=== PATIENT | male | born 1985 | race Caucasian/White ===

== ENCOUNTER 2018-04-12 21:13 | Emergency (ER) | payer OTHER ==
[2018-04-12 21:55] VITALS: BP 105/70; PULSE 68; TEMP 98.2; BMI 28.4
[2018-04-12] MEDS ORDERED: RANITIDINE HCL 150 MG TABLET (FP) PO ONE (22:35)
[2018-04-12] MEDS ORDERED: KETOROLAC TROMETHAMINE 60 MG/2 ML VIAL IM ONE (22:35)
[2018-04-12] MEDS ORDERED: RANITIDINE HCL 150 MG TABLET (FP) ONE (22:36)
[2018-04-12] MEDS ORDERED: KETOROLAC TROMETHAMINE 60 MG/2 ML VIAL ONE (22:36)
--- NOTE | 2018-04-12 22:40 | PDOC ---
History of Present Illness - General Chief Complaint: Back Pain Stated Complaint: LOWER BACK PAIN Time Seen by Provider: 04/12/18 22:06 History Source: Patient - History of Present Illness Initial Comments: 33-year-old healthy male free of any significant medical comorbidities presents for evaluation of lower back pain with left leg radiculopathy 1 month. He hasn' t taken anything for the pain he describes his pain as achy exacerbated with motion relieved with rest with left posterior lateral leg radiculopathy. He denies any loss of bowel or bladder function. No other associated symptoms. His pain started when he lifted something wrong while at work. 04/12/18 22:36 Past History - Past Medical History Allergies/Adverse Reactions: Allergies Allergy/AdvReac Type Severity Reaction Status Date / Time No Known Allergies Allergy Verified 04/12/18 21:50 Home Medications: Ambulatory Orders Cyclobenzaprine HCl [Flexeril 10 mg] 10 mg PO HS PRN #10 tablet 04/12/18 Methylprednisolone [Medrol Dose Vinay] 4 mg PO ASDIR #21 tablet 04/12/18 COPD: No - Suicide/Smoking/Psychosocial Hx Smoking History: Current every day smoker Have you smoked in the past 12 months: Yes Number of Cigarettes Smoked Daily: 0 Information on smoking cessation initiated: No Hx Alcohol Use: No Drug/Substance Use Hx: No Substance Use Type: Marijuana Review of Systems - Review of Systems Musculoskeletal: Yes: Back Pain All Other Systems: Reviewed and Negative *Physical Exam - Vital Signs Last Vital Signs Temp Pulse Resp BP Pulse Ox 98.2 F 68 20 105/70 96 04/12/18 21:50 04/12/18 21:50 04/12/18 21:50 04/12/18 21:50 04/12/18 21:50 - Physical Exam Comments: Lumbar spine skin color and temperature are normal. There is full nonpainful range of motion. 5 out of 5 strength in bilateral lower extremities. Patella and Achilles reflexes are 2+ and symmetric bilaterally. There is no clonus. Straight leg raise test is negative on the left positive on the right. Thighs and calves are soft and nontender. There are no gross sensory motor deficits. Neurovascularly intact. 04/12/18 22:37 Medical Decision Making - Medical Decision Making 33-year-old male with lumbar radiculopathy with the contralateral positive straight leg raise test. I will prescribe him a Medrol Dosepak as well as Flexeril for nighttime use and follow-up with spine surgery. While in the ER I will give him Toradol as well as GI prophylaxis with Zantac. 04/12/18 22:37 *DC/Admit/Observation/Transfer Diagnosis at time of Disposition: Lumbar radicular pain - Discharge Dispostion Disposition: HOME Condition at time of disposition: Stable Decision to Admit order: No - Prescriptions Prescriptions: Cyclobenzaprine HCl [Flexeril 10 mg] 10 mg PO HS PRN #10 tablet PRN Reason: Muscle Spasms Methylprednisolone [Medrol Dose Vinay] 4 mg PO ASDIR #21 tablet - Referrals Referrals: Usha Monte [Primary Care Provider] - Greg Elena MD [Staff Physician] - - Patient Instructions Printed Discharge Instructions: Lumbar Radiculopathy, DI for Lumbar Radiculopathy Additional Instructions: Point few to follow-up with spine surgery as advised. I've given you a steroid pack as well as a muscle relaxer which will help with her pain. It's important to start the steroid pack tomorrow morning. Do not take any other anti- inflammatories such as Advil Motrin and Aleve or ibuprofen while on the steroid pack the steroid pack as the only medicine he should take as long as you can tolerated. It's a 5 day course I've also prescribed you a muscle relaxer for nighttime use. Return to the emergency room if your symptoms worsen or go unresolved. - Post Discharge Activity
== END 2018-04-12 22:54 | disposition home or self-care (01) ==
LOC: JERFT 21:13 → JER 21:13 → JERFT 22:54
PROC: 3E0233Z Introduction of Anti-inflammatory into Muscle, Percutaneous Approach (ICD-10-PCS; principal; 2018-04-12)
DX: M54.16 Radiculopathy, lumbar region (principal); F17.210 Nicotine dependence, cigarettes, uncomplicated
CPT/HCPCS: 99281-25

== ENCOUNTER 2018-12-06 11:24 | Emergency (ER) | payer OTHER ==
[2018-12-06 11:50] VITALS: BP 126/75; PULSE 68; TEMP 98.5; BMI 28.5
--- NOTE | 2018-12-06 12:18 | PDOC ---
History of Present Illness - General Chief Complaint: Cold Symptoms Stated Complaint: NAUSEA/VOMITING Time Seen by Provider: 12/06/18 11:56 - History of Present Illness Initial Comments: 12/06/18 12:16 33-year-old male without comorbidities presents for evaluation of 14 days of nasal congestion and sinus congestion no systemic symptoms one episode of vomiting today Past History - Past Medical History Allergies/Adverse Reactions: Allergies Allergy/AdvReac Type Severity Reaction Status Date / Time No Known Allergies Allergy Verified 12/06/18 12:02 Home Medications: Ambulatory Orders Amox-Tr/K Cl [Augmentin - 875Mg Tablet] 1 tab PO BID #20 tablet 12/06/18 Budesonide [Rhinocort Allergy] 1 spray NS ONCE #1 spray.pump 12/06/18 COPD: No HTN: No - Surgical History Cardiac Surgery: No - Immunization History Immunization Up to Date: No - Suicide/Smoking/Psychosocial Hx Smoking History: Former smoker Have you smoked in the past 12 months: No Number of Cigarettes Smoked Daily: 0 Information on smoking cessation initiated: No Hx Alcohol Use: No Drug/Substance Use Hx: No Substance Use Type: Marijuana Review of Systems - Review of Systems Constitutional: No: Fever HEENTM: Yes: Nose Congestion ABD/GI: Yes: Vomiting *Physical Exam - Vital Signs Last Vital Signs Temp Pulse Resp BP Pulse Ox 98.5 F 68 18 126/75 100 12/06/18 11:47 12/06/18 11:47 12/06/18 11:47 12/06/18 11:47 12/06/18 11:47 - Physical Exam Comments: 12/06/18 12:17 HEAD: NC/AT EYES: Conjuntiva clear Ears: Canals and TM's normal NOSE: Clear discharge, injected turbinates THROAT: Moist mucous membrances, oral pharanx clear, uvula midline NECK: Supple without adenopathy CARDIAC: S1 S2 LUNGS: CTA Full and Equal breath sounds ABDOMEN: Soft NT ND MS: Full ROM in all joints without edema NEUROLOGIC: No gross sensory or motor deficits, NVID SKIN: Normal color and temperature no lesions or rashes Moderate Sedation - Procedure Monitoring Vital Signs: Procedure Monitoring Vital Signs Temperature 98.5 F 12/06/18 11:47 Pulse Rate 68 12/06/18 11:47 Respiratory Rate 18 12/06/18 11:47 Blood Pressure 126/75 12/06/18 11:47 O2 Sat by Pulse Oximetry (%) 100 12/06/18 11:47 *DC/Admit/Observation/Transfer Diagnosis at time of Disposition: Sinusitis - Discharge Dispostion Disposition: HOME Condition at time of disposition: Stable Decision to Admit order: No - Prescriptions Prescriptions: Amox-Tr/K Cl [Augmentin - 875Mg Tablet] 1 tab PO BID #20 tablet Budesonide [Rhinocort Allergy] 1 spray NS ONCE #1 spray.pump - Referrals Referrals: Jan Ring MD [Staff Physician] - - Patient Instructions Printed Discharge Instructions: Sinusitis, DI for Sinusitis Additional Instructions: Please take the antibiotics and use nasal spray as directed. Return to the emergency room should symptoms worsen or go unresolved. Follow-up with ear nose and throat doctor in 1-2 days for further evaluation and treatment options. - Post Discharge Activity
== END 2018-12-06 12:37 | disposition home or self-care (01) ==
LOC: JERFT 11:24
DX: J32.9 Chronic sinusitis, unspecified (principal); Z87.891 Personal history of nicotine dependence
CPT/HCPCS: 99281-25

== ENCOUNTER 2019-06-17 17:12 | Emergency (ER) | payer OTHER ==
[2019-06-17 17:19] VITALS: BP 122/62; PULSE 80; TEMP 98.2; BMI 26.7
[2019-06-17] MEDS ORDERED: ERYTHROMYCIN 0.5% OPHTHALMIC OINTMENT 3.5 GM TUBE OS ONE (17:56)
--- NOTE | 2019-06-17 17:58 | PDOC ---
History of Present Illness - General Chief Complaint: Eye Problem Stated Complaint: POSSIBLE CONJUNTIVITIS Time Seen by Provider: 06/17/19 17:21 History Source: Patient Exam Limitations: No Limitations Past History - Travel Traveled outside of the country in the last 30 days: No Close contact w/someone who was outside of country & ill: No - Past Medical History Allergies/Adverse Reactions: Allergies Allergy/AdvReac Type Severity Reaction Status Date / Time No Known Allergies Allergy Verified 06/17/19 17:16 Home Medications: Ambulatory Orders Amox-Tr/K Cl [Augmentin - 875Mg Tablet] 1 tab PO BID #20 tablet 12/06/18 Budesonide [Rhinocort Allergy] 1 spray NS ONCE #1 spray.pump 12/06/18 Erythromycin 0.5% Eye Ointment [Erythromycin 0.5% Eye Ointment -] 1 applic OS TID #1 tube 06/17/19 COPD: No HTN: No - Surgical History Cardiac Surgery: No - Immunization History Immunization Up to Date: No - Suicide/Smoking/Psychosocial Hx Smoking History: Never smoked Have you smoked in the past 12 months: No Number of Cigarettes Smoked Daily: 0 Hx Alcohol Use: No Drug/Substance Use Hx: No Substance Use Type: Marijuana Review of Systems - Review of Systems Able to Perform ROS?: Yes Comments:: 06/17/19 19:04 CONSTITUTIONAL: Absent: fever, chills, diaphoresis, generalized weakness, malaise, loss of appetite HEENT: Present: Eye redness and drainage Absent: rhinorrhea, nasal congestion, throat pain, throat swelling, difficulty swallowing, mouth swelling, ear pain, eye pain , visual Changes SKIN: Absent: rash, itching, pallor NEUROLOGIC: Absent: headache, focal weakness or paresthesias, dizziness, unsteady gait, seizure, mental status changes, bladder or bowel incontinence PSYCHIATRIC: Absent: anxiety, depression, suicidal or homicidal ideation, hallucinations. Is the patient limited Upper Sorbian proficient: No *Physical Exam - Vital Signs Last Vital Signs Temp Pulse Resp BP Pulse Ox 98.2 F 80 18 122/62 98 06/17/19 17:13 06/17/19 17:13 06/17/19 17:13 06/17/19 17:13 06/17/19 17:13 - Physical Exam Comments: 06/17/19 19:07 GENERAL: The patient is awake, alert, and fully oriented, in no acute distress. HEAD: Normal with no signs of trauma. EYES: Pupils equal, round and reactive to light, extraocular movements intact, sclera anicteric, conjunctiva injected to the L eye. EXTREMITIES: Normal range of motion, no edema. NEUROLOGICAL: Normal speech, normal gait. PSYCH: Normal mood, normal affect. SKIN: Warm, Dry, normal turgor, no rashes or lesions noted. Medical Decision Making - Medical Decision Making 06/17/19 19:09 The patient is a 34-year-old male with no past medical history who presents to the ER with 2 days of eye redness, discharge and itching. He used Visine drops yesterday without relief of symptoms. Denies fevers, chills, visual changes, double vision and floaters. A/P: Conjunctivitis On exam the left conjunctiva is injected, drainage noted at the medial canthus We will prescribe erythromycin ointment Discharge home I discussed the physical exam findings, ancillary test results and final diagnoses with the patient. I answered all of the patient's questions. The patient was satisfied with the care received and felt comfortable with the discharge plan and treatment plan. The Patient agrees to follow up with the primary care physician/specialist within 24-72 hours. Return precautions were given. *DC/Admit/Observation/Transfer Diagnosis at time of Disposition: Conjunctivitis Qualifiers: Conjunctivitis type: acute Acute conjunctivitis type: unspecified Laterality: left Qualified Code(s): H10.32 - Unspecified acute conjunctivitis, left eye - Discharge Dispostion Disposition: HOME Condition at time of disposition: Stable Decision to Admit order: No - Prescriptions Prescriptions: Erythromycin 0.5% Eye Ointment [Erythromycin 0.5% Eye Ointment -] 1 applic OS TID #1 tube - Referrals Referrals: Lakisha Osborne MD [Staff Physician] - - Patient Instructions Printed Discharge Instructions: DI for Conjunctivitis Additional Instructions: You have conjunctivitis. This is an eye infection. Please use erythromycin ointment twice a day to the affected eye for one week. Please wash her hands frequently Do not wear contact lenses until your infection clears Follow up with ophthalmology if her symptoms do not improve within a week. Return to the ER for visual changes, blurry vision, or any new or worsening symptoms. - Post Discharge Activity
[2019-06-17] MEDS ORDERED: ERYTHROMYCIN 0.5% OPHTHALMIC OINTMENT 3.5 GM TUBE ONE (18:01)
== END 2019-06-17 18:00 | disposition home or self-care (01) ==
LOC: JERFT 17:12
DX: H10.32 Unspecified acute conjunctivitis, left eye (principal)
CPT/HCPCS: 99281-25

== ENCOUNTER 2019-08-22 08:03 | Emergency (ER) | payer OTHER ==
[2019-08-22 08:08] VITALS: BP 128/73; PULSE 65; TEMP 98.7; BMI 26.4
[2019-08-22] MEDS ORDERED: SODIUM CHLORIDE 1,000 ML IV STA (08:49)
[2019-08-22] MEDS ORDERED: ONDANSETRON 4 MG/2 ML VIAL IVPUSH ONE (08:49)
[2019-08-22] MEDS ORDERED: ACETAMINOPHEN 1000 MG/100 ML VIAL (NON FORMULARY) IVPB ONE (08:49)
[2019-08-22] MEDS ORDERED: FAMOTIDINE 20 MG/50 ML IVPB 20 MG/50 ML MG IVPB ONE ×2 (08:50→08:57)
--- NOTE | 2019-08-22 08:54 | PDOC ---
History of Present Illness <Mary Jeffers - Last Filed: 08/22/19 10:14> - General History Source: Patient Exam Limitations: No Limitations <Gladis Haas - Last Filed: 08/22/19 11:16> - General Chief Complaint: Pain, Acute Stated Complaint: ABD PAIN Time Seen by Provider: 08/22/19 08:29 Past History <Mary Jeffers - Last Filed: 08/22/19 10:14> - Travel Traveled outside of the country in the last 30 days: No Close contact w/someone who was outside of country & ill: No - Past Medical History COPD: No HTN: No - Surgical History Cardiac Surgery: No - Immunization History Immunization Up to Date: No - Psycho Social/Smoking Cessation Hx Smoking History: Never smoked Have you smoked in the past 12 months: No Number of Cigarettes Smoked Daily: 0 Hx Alcohol Use: No Drug/Substance Use Hx: No Substance Use Type: Marijuana <Gladis Haas - Last Filed: 08/22/19 11:16> - Past Medical History Allergies/Adverse Reactions: Allergies Allergy/AdvReac Type Severity Reaction Status Date / Time No Known Allergies Allergy Verified 08/22/19 08:08 Home Medications: Ambulatory Orders Amox-Tr/K Cl [Augmentin - 875Mg Tablet] 1 tab PO BID #20 tablet 12/06/18 Budesonide [Rhinocort Allergy] 1 spray NS ONCE #1 spray.pump 12/06/18 Erythromycin 0.5% Eye Ointment [Erythromycin 0.5% Eye Ointment -] 1 applic OS TID #1 tube 06/17/19 Review of Systems - Review of Systems Able to Perform ROS?: Yes Comments:: 08/22/19 08:50 CONSTITUTIONAL: Absent: fever, chills, diaphoresis, generalized weakness, malaise, loss of appetite HEENT: Absent: rhinorrhea, nasal congestion, throat pain, throat swelling, difficulty swallowing, mouth swelling, ear pain, eye pain, visual Changes CARDIOVASCULAR: Absent: chest pain, loss of consciousness, palpitations, irregular heart rate, peripheral edema RESPIRATORY: Absent: cough, shortness of breath, dyspnea with exertion, orthopnea, wheezing, stridor, hemoptysis GASTROINTESTINAL: Present: abdominal pain, nausea Absent: abdominal distension, vomiting, diarrhea, constipation, melena, hematochezia GENITOURINARY: Absent: dysuria, frequency, urgency, hesitancy, hematuria, flank pain, genital pain MUSCULOSKELETAL: Absent: myalgia, arthralgia, joint swelling SKIN: Absent: rash, itching, pallor HEMATOLOGIC/IMMUNOLOGIC: Absent: easy bleeding, easy bruising, lymphadenopathy, frequent infections ENDOCRINE: Absent: unexplained weight gain, unexplained weight loss, heat intolerance, cold intolerance NEUROLOGIC: Absent: headache, focal weakness or paresthesias, dizziness, unsteady gait, seizure, mental status changes, bladder or bowel incontinence PSYCHIATRIC: Absent: anxiety, depression, suicidal or homicidal ideation, hallucinations. Is the patient limited Ethiopian proficient: No <NoramaiaGladis long - Last Filed: 08/22/19 11:16> *Physical Exam - Vital Signs Last Vital Signs Temp Pulse Resp BP Pulse Ox 98.7 F 65 16 128/73 99 08/22/19 08:05 08/22/19 08:05 08/22/19 08:05 08/22/19 08:05 08/22/19 08:05 <Mary Jeffers - Last Filed: 08/22/19 10:14> - Vital Signs Last Vital Signs Temp Pulse Resp BP Pulse Ox 98.7 F 65 16 128/73 99 08/22/19 08:05 08/22/19 08:05 08/22/19 08:05 08/22/19 08:05 08/22/19 08:05 - Physical Exam Comments: 08/22/19 08:54 GENERAL: Well developed, well nourished. Awake and alert. No acute distress. HEENT: Normocephalic, atraumatic. PERRLA, EOMI. No conjunctival pallor. Sclera are non- icteric. Moist mucous membranes. Oropharynx is clear. NECK: Supple. Full ROM. No JVD. Carotid pulses 2+ and symmetric, without bruits. No thyromegaly. No lymphadenopathy. CARDIOVASCULAR: Regular rate and rhythm. No murmurs, rubs, or gallops. Distal pulses are 2+ and symmetric. PULMONARY: No evidence of respiratory distress. Lungs clear to auscultation bilaterally. No wheezing, rales or rhonchi. ABDOMINAL: TTP of the RUQ with light and deep palpation. Positive Liao sign. Positive guarding of the right upper quadrant. Soft. Non-distended. No organomegaly. Normoactive bowel sounds. MUSCULOSKELETAL Normal range of motion at all joints. No bony deformities or tenderness. No CVA tenderness. EXTREMITIES: No cyanosis. No clubbing. No edema. No calf tenderness. SKIN: Warm and dry. Normal capillary refill. No rashes. No jaundice. NEUROLOGICAL: Alert, awake, appropriate. Cranial nerves 2-12 intact. No deficits to light touch and temperature in face, upper extremities and lower extremities. No motor deficits in the in face, upper extremities and lower extremities. Normoreflexic in the upper and lower extremities. Normal speech. Toes are down- going bilaterally. Gait is normal without ataxia. PSYCHIATRIC: Cooperative. Good eye contact. Appropriate mood and affect. <Gladis Haas - Last Filed: 08/22/19 11:16> ED Treatment Course - LABORATORY CBC & Chemistry Diagram: 08/22/19 09:02 08/22/19 09:02 - ADDITIONAL ORDERS Additional order review: Laboratory Results 08/22/19 08/22/19 09:02 09:02 PT with INR 11.80 INR 1.00 Sodium 139 Potassium 4.5 Chloride 104 Carbon Dioxide 29 Anion Gap 6 L BUN 16.5 Creatinine 1.0 Est GFR (CKD-EPI)AfAm 114.91 Est GFR (CKD-EPI)NonAf 99.15 Random Glucose 95 Calcium 8.6 Total Bilirubin 0.4 AST 19 ALT 25 Alkaline Phosphatase 66 Total Protein 7.0 Albumin 3.9 Lipase 154 08/22/19 09:02 RBC 4.94 MCV 88.1 MCHC 33.7 RDW 14.1 MPV 9.0 Neutrophils % 68.8 Lymphocytes % 21.3 Monocytes % 8.5 Eosinophils % 0.7 Basophils % 0.7 - Medications Given in the ED: ED Medications Discontinued Medications Generic Name Dose Route Start Last Admin Trade Name Freq PRN Reason Stop Dose Admin Acetaminophen 1,000 mg 08/22/19 08:49 08/22/19 09:05 Ofirmev Injection - IVPB 08/22/19 08:50 1,000 mg ONCE ONE Administration Famotidine/Sodium Chloride 20 mg in 50 mls @ 100 mls/hr 08/22/19 08:50 09:05 Pepcid 20 Mg Premixed Ivpb - IVPB 08/22/19 09:19 100 mls/hr ONCE ONE Administration Sodium Chloride 1,000 mls @ 1,000 mls/hr 08/22/19 08:49 08/22/19 09:05 Normal Saline - IV 08/22/19 09:48 1,000 mls/hr ASDIR STA Administration Ondansetron HCl 4 mg 08/22/19 08:49 08/22/19 09:05 Zofran Injection IVPUSH 08/22/19 08:50 4 mg ONCE ONE Administration <Mary Jeffers - Last Filed: 08/22/19 10:14> - LABORATORY CBC & Chemistry Diagram: 08/22/19 09:02 08/22/19 09:02 <Gladis Haas - Last Filed: 08/22/19 11:16> Medical Decision Making - Medical Decision Making 08/22/19 10:14 The patient was seen and evaluated in conjunction with midlevel provider under my direct supervision, ancillary studies were reviewed. I agree with the plan as outlined PA Samina HPI, workup/dispo as outlined. in summary 34 YOM with RUQ/epigastric pain, admits to eating fatty/spicy foods several days ago. VS reviewed, wnl. labs unremarkable. pain controlled after GI cocktail/fluids/analgesia bedside sono neg for stones/cholecystitis, CBD <3mm. official sono confirms anticipate discharge, supportive care, avoid triggers, pcp followup, GI followup return precautions <Mary Jeffers - Last Filed: 08/22/19 10:14> - Medical Decision Making 08/22/19 08:54 The patient is a 34-year-old male no past medical history, no surgical history, presents to the ER today for upper abdominal pain starting on Tuesday, 2018. He states that the pain gets worse after eating fatty or spicy foods. He states that the pain is mostly in the right upper quadrant. He notes that he has had associated nausea without vomiting. He has not taken any medication for his pain. Denies fevers, chills, chest pain, difficulty breathing, shortness of breath, diarrhea, constipation and urinary symptoms. A/P: Right upper quadrant pain On exam patient very tender to the right upper quadrant with a positive Liao sign. Differential diagnosis includes but is not limited to: Cholecystitis, pancreatitis, choledocholithiasis, gastritis, bile duct obstruction, pneumonia, less likely ascending cholangitis due to lack of fever. Labs, right upper quadrant ultrasound ordered IV fluids, pain medication, Zofran ordered Reevaluate 08/22/19 09:09 EK BPM Sinus Anshul. Normal intervals and axis. No acute ST-T wave changes 08/22/19 09:44 POCUS performed by myself and Dr. Jeffers. Gallbladder without stones, sludge or pericholecystic fluid. Common bile duct 1.8 mm. Overall normal gallbladder. 08/22/19 10:28 Official sono confirms bedside ultrasound Lab work is negative at this time. Anticipate discharge with GI follow-up. Supportive measures given I discussed the physical exam findings, ancillary test results and final diagnoses with the patient. I answered all of the patient's questions. The patient was satisfied with the care received and felt comfortable with the discharge plan and treatment plan. The Patient agrees to follow up with the primary care physician/specialist within 24-72 hours. Return precautions were given. <Gladis Haas - Last Filed: 08/22/19 11:16> Discharge <Mary Jeffers - Last Filed: 08/22/19 10:14> - Discharge Information Problems reviewed: Yes - Admission No <Gladis Haas - Last Filed: 08/22/19 11:16> - Discharge Information Clinical Impression/Diagnosis: Gastritis Qualifiers: Gastritis type: unspecified gastritis Chronicity: acute Gastritis bleeding: without bleeding Qualified Code(s): K29.00 - Acute gastritis without bleeding Condition: Stable - Follow up/Referral Referrals: Usha Monte [Primary Care Provider] - Tod Rivera DO [Staff Physician] - - Patient Discharge Instructions Patient Printed Discharge Instructions: DI for Gastritis Additional Instructions: You were evaluated for your abdominal pain today. Your ultrasound was normal. Your gallbladder did not show any evidence of gallstones. You most likely have gastritis. Please take the Pepcid and Zofran as directed. Avoid fatty and spicy foods Please follow-up with GI this week. Referrals been given to. Return to the ER for worsening abdominal pain, vomiting, vomiting blood, or if you have any changes in your symptoms. - Post Discharge Activity Work/Back to School Note: Back to Work
[2019-08-22] MEDS ORDERED: ACETAMINOPHEN INJECTION 100 ML IVPB ONE (08:57)
[2019-08-22] MEDS ORDERED: ONDANSETRON 4 MG/2 ML VIAL ONE (08:57)
[2019-08-22 09:20] LABS: BASO % 0.7 % (0-2.0); EOS % 0.7 % (0-4.5); HEMATOCRIT 43.6 % (35.4-49); HEMOGLOBIN 14.7 GM/dL (11.7-16.9); LYMPH % 21.3 % (8-40); MCH 29.7 pg (25.7-33.7); MCHC 33.7 g/dl (32.0-35.9); MEAN CELL VOLUME 88.1 fl (80-96); MONO % 8.5 % (3.8-10.2); NEUT % 68.8 % (42.8-82.8); PLATELET COUNT 206 K/MM3 (134-434); RBC 4.94 M/mm3 (4.00-5.60); RDW 14.1 % (11.9-15.9); WHITE BLOOD COUNT 7.8 K/mm3 (4.0-10.0)
[2019-08-22 09:33] LABS: PROTHROMBIN TIME (PATIENT) 11.8 SEC (9.7-13.0)
[2019-08-22 09:51] LABS: ALBUMIN 3.9 g/dl (3.4-5.0); BILIRUBIN,TOTAL 0.4 mg/dL (0.2-1); BLOOD UREA NITROGEN 16.5 mg/dL (7-18); CALCIUM 8.6 mg/dL (8.5-10.1); POTASSIUM 4.5 mmol/L (3.5-5.1)
[2019-08-22 11:02] LABS: PH,URINE 6.5 (5.0-8.0); URINE APPEARANCE CLEAR; URINE BILIRUBIN NEGATIVE (NEGATIVE); URINE COLOR YELLOW; URINE GLUCOSE (UA) NEGATIVE (NEGATIVE); URINE KETONE NEGATIVE (NEGATIVE); URINE LEUK ESTERASE NEGATIVE (NEGATIVE); URINE NITRITE NEGATIVE (NEGATIVE); URINE PROTEIN NEGATIVE (NEGATIVE); URINE UROBILINOGEN 0.2 mg/dL (0.2-1.0)
--- NOTE | 2019-08-22 12:56 | EKG ---
Test Reason : Blood Pressure : / mmHG Vent. Rate : 056 BPM Atrial Rate : 056 BPM P-R Int : 152 ms QRS Dur : 088 ms QT Int : 410 ms P-R-T Axes : 063 017 033 degrees QTc Int : [address] ELEVATION CONSIDER ANTERIOR INJURY OR ACUTE INFARCT Confirmed by MAXINE RUIZ, RYLAN ([id number]) on 08/22/2019 12:56:29 PM Referred By: Confirmed By:RYLAN GOODMAN MD
== END 2019-08-22 11:44 | disposition home or self-care (01) ==
LOC: JER 08:03
PROC: 3E033NZ Introduction of Analgesics, Hypnotics, Sedatives into Peripheral Vein, Percutaneous Approach (ICD-10-PCS; principal; 2019-08-22)
PROC: 3E033GC Introduction of Other Therapeutic Substance into Peripheral Vein, Percutaneous Approach (ICD-10-PCS; 2019-08-22)
PROC: 3E0337Z Introduction of Electrolytic and Water Balance Substance into Peripheral Vein, Percutaneous Approach (ICD-10-PCS; 2019-08-22)
DX: K29.00 Acute gastritis without bleeding (principal)
CPT/HCPCS: 36415; 76705-TC; 80053; 81003; 83690; 85025; 85610; 87086; 93005; 93010; 96365; 96375; 99283-25; J0131; J7030

== ENCOUNTER 2019-08-23 06:17 | Emergency (ER) | payer OTHER ==
[2019-08-23 06:52] VITALS: BP 134/88; PULSE 68; BMI 26.4
--- NOTE | 2019-08-23 07:23 | PDOC ---
History of Present Illness - General Chief Complaint: Pain Stated Complaint: ABDOMINAL PAIN Time Seen by Provider: 08/23/19 07:22 Past History - Past Medical History Allergies/Adverse Reactions: Allergies Allergy/AdvReac Type Severity Reaction Status Date / Time No Known Allergies Allergy Verified 08/23/19 06:43 Home Medications: Ambulatory Orders Amox-Tr/K Cl [Augmentin - 875Mg Tablet] 1 tab PO BID #20 tablet 12/06/18 Budesonide [Rhinocort Allergy] 1 spray NS ONCE #1 spray.pump 12/06/18 Erythromycin 0.5% Eye Ointment [Erythromycin 0.5% Eye Ointment -] 1 applic OS TID #1 tube 06/17/19 Famotidine [Pepcid -] 20 mg PO BID #14 tablet 08/22/19 Famotidine [Pepcid -] 20 mg PO BID #14 tablet 08/22/19 Ondansetron [Zofran Odt -] 4 mg SL TID #10 od.tablet 08/22/19 Ondansetron [Zofran Odt -] 4 mg SL TID #10 od.tablet 08/22/19 Pantoprazole Sodium [Protonix -] 20 mg PO BID #20 tablet.ec 08/23/19 COPD: No HTN: No - Surgical History Cardiac Surgery: No - Immunization History Immunization Up to Date: No - Psycho Social/Smoking Cessation Hx Smoking History: Never smoked Have you smoked in the past 12 months: No Number of Cigarettes Smoked Daily: 0 Information on smoking cessation initiated: No Hx Alcohol Use: No Drug/Substance Use Hx: No Substance Use Type: Marijuana *Physical Exam - Vital Signs Last Vital Signs Temp Pulse Resp BP Pulse Ox 68 17 134/88 99 08/23/19 06:37 08/23/19 06:37 08/23/19 06:37 08/23/19 06:37 ED Treatment Course - LABORATORY CBC & Chemistry Diagram: 08/23/19 08:20 08/23/19 08:20 Medical Decision Making - Medical Decision Making HPI: 34yo M with no reported PMH presenting with abdominal pain since Tuesday. Patient states the pain is rated 10/10 and described as "sharp." He is "afraid to eat" as eating fatty foods will make his pain worse. Never had pain like this before. No history of abdominal surgeries. Endorses nausea but no vomiting. Last bowel movmement was Tuesday and was loose dark brown stool without blood. Patient had two episodes of diarrhea on Tuesday and four on Tuesday. Was evaluated in this ED yesterday for same complaint and had unremarkable blood work and gallbladder US. Was prescribed zofran and pepcid. Took zofran this morning without relief of pain and did not take pepcid as he is supposed to take it at 8am. Did not take any tylenol or motrin. No fevers, chills, or chest pain. ROS: Constitutional: no fever, no chills HEENT: no throat pain, no dysphagia Cardiovascular: no chest pain, no palpitations Respiratory: no cough, no shortness of breath Gastrointestinal: +abdominal pain, +nausea Genitourinary: no dysuria, no hematuria Musculoskeletal: no myalgia, no arthralgia Skin: no rash, no itching Neurologic: +headache, no weakness PE: General: Awake, alert, and fully oriented, in no acute distress Head: No signs of trauma Eyes: EOMI, sclera anicteric ENT: Moist mucus membranes Neck: Normal ROM, supple Lungs: Lungs clear, Normal breath sounds Cardio: Regular rhythm, S1 and S2 present Abdomen: Tender to palpation in epigastrium and RUQ. Soft, nondistended, no masses Extremities: Normal range of motion, Distal pulses present SKIN: Warm, Dry, normal turgor Neurologic: Cranial nerves II through XII grossly intact. Normal speech ED Course/MDM: DDX including but not limited to gastritis, ulcer, perforation, SBO, malignancy , pancreatitis, acute cholecystitis, biliary colic Labs, EKG CTAP with IV contrast Pepcid Zofran Fluids Ofirmev Patient states he feels better after receiving medications, pain is now 5/10 Pending CTAP report 08/23/19 10:00 CTAP negative for acute pathology, per radiology: "Visualized lung base appears unremarkable and the heart is within normal limits in size. Evaluation of the liver, spleen, pancreas, gallbladder, both adrenal glands and both kidneys appear unremarkable. Stomach is moderately distended without wall thickening. There is no evidence of small bowel obstruction. However, fluid-filled nondilated small bowel loops in the mid abdomen and the pelvis suggestive of ileus. Normal-appearing terminal ileum and appendix. Moderate amount of fecal residue in the colon without wall thickening. Multiple small cystic densities in the right and left adnexa compatible with ovarian cysts/follicles that are visualized on the transvaginal ultrasound done the greater on the same date, at 09:07 hour. No free air, free fluid or enlarged mesenteric lymph nodes are identified. Normal size and enhancement of the abdominal aorta down through its bifurcation. Visualized osseous structures appear intact. IMPRESSION: There is no evidence of small bowel obstruction. However, fluid-filled nondilated small bowel loops are present mainly in the pelvis suggestive of ileus. Correlate clinically. Multiple cystic densities in the right and left adnexa compatible with multiple ovarian cysts/ follicles. Normal appearing appendix without evidence of acute appendicitis. " Patient feeling better, asking for food Passed po challenge with crackers and saltines GI referral Protonix to pharmacy (patient received pepcid and zofran yesterday) Discharged with return precautions Discharge - Discharge Information Problems reviewed: Yes Clinical Impression/Diagnosis: Abdominal pain Qualifiers: Abdominal location: epigastric Qualified Code(s): R10.13 - Epigastric pain Condition: Improved Disposition: HOME - Additional Discharge Information Prescriptions: Pantoprazole Sodium [Protonix -] 20 mg PO BID #20 tablet.ec - Follow up/Referral Referrals: Irvin Bergeron MD [Staff Physician] - - Patient Discharge Instructions Patient Printed Discharge Instructions: DI for Abdominal Pain-Adult Additional Instructions: You came into the ED for abdominal pain. We gave you medicine and fluids which helped you feel better. Lab work was within normal limits. A CT scan of your abdomen and pelvis was unremarkable. Make sure you drink plenty of water. Avoid alcohol and smoking Start with clear liquids such as water and broth. You can then transition to eating small, low-fat meals We have referred you to a GI doctor. Call today and make an appointment. Your workup is not complete until you do so. You can take over the counter motrin or tylenol for pain. Follow the instructions on the medication bottle. Continue taking home medications as prescribed. Immediate medical attention is required if you develop: worsening pain, high fevers, persistent nausea, vomiting, or any new or concerning symptoms. If you think you are having an emergency, call for emergency medical services or present to the emergency department right away. - Post Discharge Activity Work/Back to School Note: Back to Work
[2019-08-23 07:27] VITALS: TEMP 98.3
[2019-08-23] MEDS ORDERED: SODIUM CHLORIDE 1,000 ML IV STA (07:47)
[2019-08-23] MEDS ORDERED: ONDANSETRON 4 MG/2 ML VIAL IVPUSH ONE (07:47)
[2019-08-23] MEDS ORDERED: FAMOTIDINE 20 MG/50 ML IVPB 20 MG/50 ML MG IVPB ONE ×2 (07:47→07:56)
[2019-08-23] MEDS ORDERED: ACETAMINOPHEN 1000 MG/100 ML VIAL (NON FORMULARY) IVPB ONE (07:47)
[2019-08-23] MEDS ORDERED: ONDANSETRON 4 MG/2 ML VIAL ONE (07:56)
[2019-08-23] MEDS ORDERED: ACETAMINOPHEN INJECTION 100 ML IVPB ONE (07:56)
[2019-08-23 08:33] LABS: BASO % 0.6 % (0-2.0); EOS % 0.4 % (0-4.5); HEMATOCRIT 43.3 % (35.4-49); HEMOGLOBIN 14.5 GM/dL (11.7-16.9); LYMPH % 19.8 % (8-40); MCH 29.4 pg (25.7-33.7); MCHC 33.4 g/dl (32.0-35.9); MEAN PLT VOLUME 9.1 fl (7.5-11.1); NEUT % 71.2 % (42.8-82.8); PLATELET COUNT 207 K/MM3 (134-434); RBC 4.92 M/mm3 (4.00-5.60); RDW 13.8 % (11.9-15.9); WHITE BLOOD COUNT 6.6 K/mm3 (4.0-10.0)
[2019-08-23 09:06] LABS: ALBUMIN 3.9 g/dl (3.4-5.0); BILIRUBIN,TOTAL 0.8 mg/dL (0.2-1); BLOOD UREA NITROGEN 12.2 mg/dL (7-18); CREATININE 0.9 mg/dL (0.55-1.3); POTASSIUM 4.7 mmol/L (3.5-5.1); TOT PROT 7.2 g/dl (6.4-8.2)
--- NOTE | 2019-08-23 09:24 | PDOC ---
Attending Attestation - Resident Resident Name: Jesica Hill - ED Attending Attestation I have performed the following: I have examined & evaluated the patient, The case was reviewed & discussed with the resident, I agree w/resident's findings & plan, Exceptions are as noted - HPI HPI: 08/23/19 09:22 34 years old with no significant past medical history presents to the emergency department with several day history of moderate to severe abdominal discomfort seen in the emergency department yesterday with same labs were checked which were normal. Nausea retching pain is relieved by hot showers patient does endorse cannabis use previously heavy now more recreational no surgeries no travel no sick contacts no fever ROS: A complete review of 10 out of 10 review of systems is taken and is negative apart from what is previously mentioned below and in the HPI. - Physicial Exam PE: 08/23/19 09:23 Vitals: Triage Vital signs reviewed General Appearance: No acute distress, well nourished well developed, Head: Atraumatic, Cardiac: Regular rate and rhythym, no murmurs, no rubs, no gallops, Lungs: Clear to auscultation bilateral, good air movement bilaterally, Abdomen: Soft, non distended, normal bowel sounds, non tender to palpation Extremities: Full range of motion to all extremities, no cyanosis, clubbing, or edema Skin: Warm and dry, no rashes or lesions, no rash, no petechiae Psych: Normal mood, normal affect - Medical Decision Making 08/23/19 14:34 Patient with history of chronic cannabinoid use presents now 2 days in a row with nausea vomiting and abdominal pain Labs within normal limits his CAT scan demonstrates no acute pathology he feels better after GI cocktail This time most likely differential is hyperemesis cannabinoid syndrome We will recommend smoking cessation omeprazole GI follow-up Findings, need for follow-up and strict return instructions discussed with patient.
--- NOTE | 2019-08-24 14:35 | EKG ---
Test Reason : Blood Pressure : / mmHG Vent. Rate : 053 BPM Atrial Rate : 053 BPM P-R Int : 146 ms QRS Dur : 088 ms QT Int : 400 ms P-R-T Axes : 058 014 033 degrees QTc Int : 375 ms SINUS BRADYCARDIA POSSIBLE LEFT ATRIAL ENLARGEMENT WHEN COMPARED WITH ECG OF 22-AUG-2019 08:52, NO SIGNIFICANT CHANGE WAS FOUND Confirmed by VICENTE CHANEY MD ([id number]) on 08/24/2019 2:35:34 PM Referred By: Confirmed By:VICENTE CHANEY MD
== END 2019-08-23 11:08 | disposition home or self-care (01) ==
LOC: JER 06:17
PROC: 3E033NZ Introduction of Analgesics, Hypnotics, Sedatives into Peripheral Vein, Percutaneous Approach (ICD-10-PCS; principal; 2019-08-23)
PROC: 3E033GC Introduction of Other Therapeutic Substance into Peripheral Vein, Percutaneous Approach (ICD-10-PCS; 2019-08-23)
PROC: 3E0337Z Introduction of Electrolytic and Water Balance Substance into Peripheral Vein, Percutaneous Approach (ICD-10-PCS; 2019-08-23)
DX: R10.13 Epigastric pain (principal)
CPT/HCPCS: 36415; 74177-TC; 80053; 83690; 85025; 93005; 93010; 99284-25; J0131; J7030

== ENCOUNTER 2021-03-20 08:50 | Emergency (ER) | payer OTHER ==
[2021-03-20 08:55] VITALS: BP 114/72; PULSE 65; TEMP 98.1; BMI 28.4
[2021-03-20 11:39] LABS: BASO % 0.5 % (0-2.0); HEMATOCRIT 39.6 % (35.4-49); HEMOGLOBIN 13.3 GM/dL (11.7-16.9); LYMPH % 27.1 % (8-40); MCH 29.8 pg (25.7-33.7); MCHC 33.6 g/dl (32.0-35.9); MEAN CELL VOLUME 88.5 fl (80-96); MEAN PLT VOLUME 9.3 fl (7.5-11.1); MONO % 7.2 % (3.8-10.2); NEUT % 64.2 % (42.8-82.8); PLATELET COUNT 178 K/MM3 (134-434); RBC 4.47 M/mm3 (4.00-5.60); RDW 13.9 % (11.9-15.9); WHITE BLOOD COUNT 6.6 K/mm3 (4.0-10.0)
[2021-03-20 11:52] LABS: CHLORIDE 108 mmol/L (98-107); SODIUM 141 mmol/L (136-145)
[2021-03-20 11:54] LABS: ALBUMIN 3.9 g/dl (3.4-5.0); CALCIUM 8.5 mg/dL (8.5-10.1)
[2021-03-20 11:55] LABS: ANION GAP 5 MMOL/L (8-16); BLOOD UREA NITROGEN 17.1 mg/dL (7-18); CO2 28 mmol/L (21-32); GLUCOSE,RANDOM 98 mg/dL (74-106)
[2021-03-20 11:57] LABS: SGPT/ALT 21 U/L (13-61)
[2021-03-20 11:58] LABS: CREATININE 0.9 mg/dL (0.55-1.3); SGOT/AST 13 U/L (15-37)
[2021-03-20 11:59] LABS: BILIRUBIN,TOTAL 0.4 mg/dL (0.2-1); TOT PROT 6.9 g/dl (6.4-8.2)
[2021-03-20 12:00] LABS: ALK PHOS 56 U/L (45-117)
== END 2021-03-20 12:30 | disposition home or self-care (01) ==
LOC: JER 08:50
DX: R07.9 Chest pain, unspecified (principal)
CPT/HCPCS: 36415; 71046-TC-FY; 80053; 82550; 84484; 85025; 93005; 93010; 99285-25; C9803; U0003; U0005

== ENCOUNTER 2021-04-30 07:16 | Emergency (ER) | payer OTHER ==
[2021-04-30 07:40] VITALS: BP 110/66; PULSE 62; TEMP 98; BMI 25.0
[2021-04-30] MEDS ORDERED: ACETAMINOPHEN 1000 MG/100 ML VIAL (NON FORMULARY) IVPB ONE (08:06)
[2021-04-30] MEDS ORDERED: SODIUM CHLORIDE 1,000 ML IV STA (08:06)
[2021-04-30] MEDS ORDERED: FAMOTIDINE 20 MG/50 ML IVPB 20 MG/50 ML MG IVPB ONE ×2 (08:08→08:33)
[2021-04-30] MEDS ORDERED: MAG HYDROX/AL HYDROX/SIMETH 30 ML UNIT-DOSE CUP PO ONE (08:09)
[2021-04-30] MEDS ORDERED: ONDANSETRON 4 MG/2 ML VIAL IVPUSH ONE (08:09)
[2021-04-30 08:23] LABS: PH,URINE 5.5 (5.0-8.0); URINE APPEARANCE CLEAR; URINE BILIRUBIN NEGATIVE (NEGATIVE); URINE COLOR YELLOW; URINE GLUCOSE (UA) NEGATIVE (NEGATIVE); URINE KETONE NEGATIVE (NEGATIVE); URINE LEUK ESTERASE NEGATIVE (NEGATIVE); URINE NITRITE NEGATIVE (NEGATIVE); URINE PROTEIN NEGATIVE (NEGATIVE); URINE UROBILINOGEN 0.2 mg/dL (0.2-1.0)
[2021-04-30 08:24] LABS: BASO % 0.6 % (0-2.0); EOS % 1.2 % (0-4.5); HEMATOCRIT 44.4 % (35.4-49); HEMOGLOBIN 14.6 GM/dL (11.7-16.9); LYMPH % 31.8 % (8-40); MCH 28.9 pg (25.7-33.7); MCHC 32.9 g/dl (32.0-35.9); MEAN PLT VOLUME 9.5 fl (7.5-11.1); MONO % 8.1 % (3.8-10.2); NEUT % 58.3 % (42.8-82.8); PLATELET COUNT 201 10^3/uL (134-434); RBC 5.05 M/mm3 (4.00-5.60); RDW 13.7 % (11.9-15.9); WHITE BLOOD COUNT 7.5 K/mm3 (4.0-10.0)
[2021-04-30 08:28] LABS: INR 0.92 (0.83-1.09); PROTHROMBIN TIME (PATIENT) 11.4 SEC (9.7-13.0)
[2021-04-30] MEDS ORDERED: MAG HYDROX/AL HYDROX/SIMETH 30 ML UNIT-DOSE CUP ONE (08:33)
[2021-04-30] MEDS ORDERED: ACETAMINOPHEN INJECTION 100 ML IVPB ONE (08:33)
[2021-04-30] MEDS ORDERED: ONDANSETRON 4 MG/2 ML VIAL ONE (08:33)
[2021-04-30 08:41] LABS: CHLORIDE 105 mmol/L (98-107); SODIUM 140 mmol/L (136-145)
[2021-04-30 08:43] LABS: CALCIUM 9.1 mg/dL (8.5-10.1)
[2021-04-30 08:44] LABS: ALBUMIN 4.5 g/dl (3.4-5.0); ANION GAP 6 MMOL/L (8-16); BLOOD UREA NITROGEN 13.1 mg/dL (7-18); CO2 30 mmol/L (21-32); GLUCOSE,RANDOM 85 mg/dL (74-106); LIPASE 269 U/L (73-393)
[2021-04-30 08:47] LABS: CREATININE 0.9 mg/dL (0.55-1.3); SGOT/AST 15 U/L (15-37); SGPT/ALT 24 U/L (13-61)
[2021-04-30 08:48] LABS: BILIRUBIN,TOTAL 0.3 mg/dL (0.2-1); TOT PROT 7.9 g/dl (6.4-8.2)
[2021-04-30 08:50] LABS: ALK PHOS 64 U/L (45-117)
== END 2021-04-30 11:07 | disposition home or self-care (01) ==
LOC: JER 07:16
PROC: 3E033NZ Introduction of Analgesics, Hypnotics, Sedatives into Peripheral Vein, Percutaneous Approach (ICD-10-PCS; principal; 2021-04-30)
PROC: 3E033GC Introduction of Other Therapeutic Substance into Peripheral Vein, Percutaneous Approach (ICD-10-PCS; 2021-04-30)
PROC: 3E0337Z Introduction of Electrolytic and Water Balance Substance into Peripheral Vein, Percutaneous Approach (ICD-10-PCS; 2021-04-30)
DX: K29.00 Acute gastritis without bleeding (principal)
CPT/HCPCS: 36415; 80053; 81003; 82550; 83690; 84484; 85025; 85610; 87086; 93005; 93010; 99285-25; J0131

== ENCOUNTER 2021-06-30 17:51 | Emergency (ER) | payer OTHER ==
[2021-06-30 18:19] VITALS: BP 114/75; PULSE 68; TEMP 98.5; BMI 32.3
== END 2021-06-30 20:31 | disposition home or self-care (01) ==
LOC: JER 17:51
DX: R05 Cough (principal)
CPT/HCPCS: 71046-TC-FY; 99284-25; C9803; U0003; U0005

== ENCOUNTER 2021-11-07 00:31 | Emergency (ER) | payer OTHER ==
[2021-11-07 00:57] VITALS: BP 119/69; PULSE 71; TEMP 99.3; BMI 30.4
[2021-11-07] MEDS ORDERED: IBUPROFEN 600 MG TABLET (FP) PO ONE ×2 (01:20→01:35)
[2021-11-08 19:06] LABS: SARS-CoV-2 NAA Detected (Not Detected)
== END 2021-11-07 01:54 | disposition home or self-care (01) ==
LOC: JER 00:31
DX: B34.9 Viral infection, unspecified (principal)
CPT/HCPCS: 87804; 87807; 99283-25; C9803; U0003; U0005

== ENCOUNTER 2025-06-16 19:03 | Emergency (ER) | payer OTHER ==
[2025-06-16 19:09] VITALS: BP 123/62; PULSE 78; RESP 16; TEMP 98.4; BMI 27.0
== END 2025-06-16 20:37 | disposition home or self-care (01) ==
LOC: JERFT 19:03
DX: S93.401A Sprain of unspecified ligament of right ankle, initial encounter (principal); X50.1XXA Overexertion from prolonged static or awkward postures, initial encounter
CPT/HCPCS: 73610-TC-RT-FY; 99283-25